=== PATIENT | male | born 1975 | race Caucasian/White ===

== ENCOUNTER 2018-03-08 13:43 | Inpatient (IN) | payer SELFPAY ==
[2018-03-08] MEDS ORDERED: MAG HYDROX/ALUMINUM HYD/SIMETH 30 ML ORAL.SUSP PO (14:00)
[2018-03-08] MEDS ORDERED: ACETAMINOPHEN 325 MG TABLET. PO (14:00)
[2018-03-08] MEDS ORDERED: KETOROLAC 15 MG/ML VIAL. IV (14:00)
[2018-03-08] MEDS ORDERED: MECLIZINE HCL 12.5 MG TABLET. PO (14:00)
[2018-03-08] MEDS ORDERED: MAGNESIUM HYDROXIDE 2,400 MG/30 ML ORAL.SUSP. PO (14:00)
[2018-03-08] MEDS ORDERED: IBUPROFEN 400 MG TABLET. PO (14:00)
[2018-03-08] MEDS ORDERED: MORPHINE SULFATE 2 MG/ML DISP.SYRIN. IV (14:00)
[2018-03-08] MEDS ORDERED: NICOTINE 21MG PATCH. TD (14:00)
[2018-03-08] MEDS ORDERED: ZOLPIDEM 5 MG TABLET. PO (14:00)
[2018-03-08] MEDS ORDERED: oxyCODONE IR 5 MG TABLET PO (14:00)
[2018-03-08] MEDS ORDERED: PROCHLORPERAZINE 10 MG/2 ML VIAL. IV (14:00)
[2018-03-08] MEDS ORDERED: PROCHLORPERAZINE 25 MG SUPP.RECT. PR (14:00)
[2018-03-08] MEDS ORDERED: ONDANSETRON PF 4 MG/2 ML VIAL. IV (14:00)
[2018-03-08] MEDS: GADOBUTROL 7.5 MMOL/7.5 ML VIAL IV (15:50)
== END 2018-03-08 17:30 | disposition left against medical advice (07) | DRG 149 ==
LOC: 5 SOUTH 13:43
DX: H81.20 Vestibular neuronitis, unspecified ear (principal); H81.399 Other peripheral vertigo, unspecified ear; Z87.891 Personal history of nicotine dependence
CPT/HCPCS: 70553; A9585